=== PATIENT | female | born 1955 | race Caucasian/White ===

== ENCOUNTER 2022-11-18 23:03 | Emergency (ER) | payer BC, OTHER ==
[~2022-11-18] VITALS: Ht 165.1 cm; Wt 83.9 kg
--- NOTE | 2022-11-18 23:18 | NUR ---
Patient BIB paramedics c/o nausea and sweats. Per paramedics, BP in the field was 200/82 patient stated she had LT shoulder surgery 2 weeks ago. Patient's BP upon arrival is 173/79
--- NOTE | 2022-11-18 23:22 | NUR ---
PT BIBA TO [facility], REPORT RECEIVED, PT PLACED ON MONITOR.
--- NOTE | 2022-11-18 23:29 | NUR ---
PT UP OOB AMB TO BR WITH STEADY GAIT.
--- NOTE | 2022-11-19 00:56 | NUR ---
Dr Gannon at bedside MSE in progress
[2022-11-19] MEDS ORDERED: CLONIDINE HCL 0.1 MG TABLET ONE (01:12)
[2022-11-19] MEDS: CLONIDINE HCL 0.1 MG TABLET PO ONE (01:14)
--- NOTE | 2022-11-19 01:27 | NUR ---
LAB AT BEDSIDE DRAWING BLOOD.
[2022-11-19] MEDS ORDERED: CLON0.1T PO (02:22)
[2022-11-19 02:32] VITALS: BP 145/91
--- NOTE | 2022-11-19 02:34 | NUR ---
PT IS A,A AND O X 4 WITH BP IMPROVED.Patient discharged to home in stable condition. Written and verbal after care instructions given. Patient verbalizes understanding of instructions. Stressed follow up or return to ER for worsening s/s. PT AMB OUT WITH STEADY GAIT WITH .
== END 2022-11-19 02:30 | disposition home or self-care (01) ==
LOC: ER 23:04
DX: I10 Essential (primary) hypertension (principal); Z88.5 Allergy status to narcotic agent; Z79.899 Other long term (current) drug therapy
CPT/HCPCS: 36415; 83735; A4663